=== PATIENT | female | born 1965 | race Caucasian/White ===

== ENCOUNTER 2021-09-20 18:22 | Emergency (ER) | payer OTHER ==
[~2021-09-20 18:22] MED LIST: BACTRIM DS TAB1 EACH PO; BENTYL10 MG PO; CATAPRES0.1 MG PO; COZAAR 25MG TAB25 MG PO; CYCLOBENZAPRINE10 MG PO; CYMBALTA 30MG C30 MG PO; DIAMOX250 MG PO; DIFLUCAN150 MG PO; HYDROCODON-ACE1 EAC2 PO; IBUPROFEN800 MG PO; INDOCIN25 MG PO; KEFLEX500 MG PO; LEVOTHYROXINE112 MCG PO; LOVAZA1 GM PO; METOPROLOL SUCC50 MG PO; NAPROXEN500 MG PO; OMEPRAZOLE40 MG PO; PERCOCET 5-3251 EACH PO; PHENERGAN25 M1 PO; PROMETHEGA12.5 MG/SU PR; ROBAXIN750 MG PO; ZANAFLEX4 M1 PO
[2021-09-20 21:58] LABS: BASOPHIL 0.5 % (0-2); EOSINOPHIL 1.4 % (0-5); HCT 44.2 % (37.0-47.0); MCH 29.2 pg (25.0-31.0); MCHC 31.7 g/dL (32.0-36.0); MCV 92.1 fL (78.0-100.0); MONOCYTE 10.7 % (0-12); MPV 10.4 fL (6.0-9.5); NEUTROPHIL 56.8 % (41-80); NRBC 0; PLT 192 K/uL (150-400); RDW 14.1 % (11.5-14.0); WBC 6.4 K/uL (4.0-10.5)
[2021-09-20 22:13] LABS: ALBUMIN 3.3 g/dL (3.4-5.0); BILIRUBIN - TOTAL 0.3 mg/dL (0.2-1.0); BUN/CREAT RATIO (CALC) 13.5 RATIO; CREATININE 0.96 mg/dL (0.51-0.95); GLOBULIN (CALCULATION) 4.5 g/dL; POTASSIUM 3.9 mmol/L (3.5-5.1); TOTAL PROTEIN 7.8 g/dL (6.4-8.2)
[2021-09-21] MEDS ORDERED: VIBRAMYCIN100 MG PO (00:03)
[2021-09-21] MEDS ORDERED: PAXLOVID CO-PA1 EAC1 PO (00:03)
[2021-09-21] MEDS ORDERED: ONDANSETRON ODT4 MG PO (00:03)
== END 2021-09-21 00:17 | disposition home or self-care (01) ==
LOC: FER 18:22
PROVIDERS: Emergency Medicine
DX: U07.1 COVID-19 (principal); I95.1 Orthostatic hypotension; I10 Essential (primary) hypertension; Z88.1 Allergy status to other antibiotic agents; Z88.5 Allergy status to narcotic agent; Z91.041 Radiographic dye allergy status; Z79.82 Long term (current) use of aspirin; Z79.899 Other long term (current) drug therapy
CPT/HCPCS: 36415; 71045; 80053; 85025; 93005; J1885; J7030; Q0169

== ENCOUNTER 2021-12-02 08:35 | Emergency (ER) | payer OTHER ==
[~2021-12-02 08:35] MED LIST changes: +ONDANSETRON ODT4 MG PO; +PAXLOVID CO-PA1 EAC1 PO; +VIBRAMYCIN100 MG PO
[2021-12-02 09:12] LABS: BASOPHIL 0.5 % (0-2); EOSINOPHIL 2.8 % (0-5); HCT 42.8 % (37.0-47.0); HGB 13.8 g/dl (12.5-16.0); LYMPHOCYTE 25.4 % (15-48); MCH 28.6 pg (25.0-31.0); MCHC 32.2 g/dL (32.0-36.0); MCV 88.6 fL (78.0-100.0); MONOCYTE 7.1 % (0-12); NEUTROPHIL 63.6 % (41-80); NRBC 0; PLT 179 K/uL (150-400); RBC 4.83 M/uL (4.20-5.40); RDW 13.2 % (11.5-14.0); WBC 6.4 K/uL (4.0-10.5)
[2021-12-02] MEDS ORDERED: NAPROXEN500 MG PO (09:24)
[2021-12-02 10:18] LABS: CREATININE 0.9 mg/dL (0.51-0.95); POTASSIUM 4.6 mmol/L (3.5-5.1)
== END 2021-12-02 10:49 | disposition home or self-care (01) ==
LOC: FER 08:35
PROVIDERS: Emergency Medicine
DX: M94.0 Chondrocostal junction syndrome [Tietze] (principal); I10 Essential (primary) hypertension; Z88.1 Allergy status to other antibiotic agents; Z91.041 Radiographic dye allergy status; Z88.5 Allergy status to narcotic agent; Z79.899 Other long term (current) drug therapy; Z79.82 Long term (current) use of aspirin
CPT/HCPCS: 36415; 71046; 80048; 84484; 85025; 85379; 93005; J1885